=== PATIENT | male | born 1960 | race Caucasian/White ===

== ENCOUNTER 2018-08-19 14:15 | Outpatient (RCR) | payer OTHER | END 2018-09-21 | disposition still patient (30) | LOC: MKS.ESL.PT | DX: S46.012A Strain of muscle(s) and tendon(s) of the rotator cuff of left shoulder, initial encounter (principal) ==

== ENCOUNTER 2023-06-05 15:57 | Emergency (ER) | payer OTHER ==
[~2023-06-05] VITALS: Ht 182.9 cm; Wt 116.4 kg
[~2023-06-05 15:57] MED LIST: COSOPT 2%-0.5%10 ML OU; KLONOPIN2 MG PO; LEXAPRO20 MG PO; NORCO 325 MG-51 TAB PO; RELPAX 40MG TAB40 MG PO; SYNTHROID0.088 MG/T PO; ZYLOPRIM 300MG300 MG PO
[2023-06-05] MEDS ORDERED: MONODOX50 M1 PO (16:24)
[2023-06-05] MEDS ORDERED: VALTREX1 GM PO (16:48)
[2023-06-05 17:32] VITALS: BP 113/75; PULSE 72; TEMP 98.4
== END 2023-06-05 17:32 | disposition home or self-care (01) ==
LOC: COL.ER 15:57
DX: B02.9 Zoster without complications (principal)